=== PATIENT | male | born 1990 | race Caucasian/White ===

== ENCOUNTER 2019-02-09 00:38 | Emergency (ER) | payer MEDICAID, OTHER ==
[~2019-02-09] VITALS: Ht 170.2 cm; Wt 79.8 kg
--- NOTE | 2019-02-09 01:14 | NUR ---
SHELBY HARRISON CT
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
--- NOTE | 2019-02-09 01:45 | NUR ---
madeline on l posterior head lac[facility]. lozada. pt tolerated the procedure well. ice pack applied.
[2019-02-09 01:53] VITALS: BP 121/69
--- NOTE | 2019-02-09 01:53 | NUR ---
Patient discharged to home in stable condition. Written and verbal after care instructions given. Patient verbalizes understanding of instruction.
== END 2019-02-09 01:54 | disposition home or self-care (01) ==
LOC: ER 00:43
DX: S01.01XA Laceration without foreign body of scalp, initial encounter (principal); R51 Headache; Z88.0 Allergy status to penicillin; W18.09XA Striking against other object with subsequent fall, initial encounter; Y93.89 Activity, other specified; Y92.89 Other specified places as the place of occurrence of the external cause; Y99.8 Other external cause status
CPT/HCPCS: 12002; 70450; 99284; A6403

== ENCOUNTER 2019-02-25 01:11 | Emergency (ER) | payer MEDICAID ==
[~2019-02-25] VITALS: Ht 172.7 cm; Wt 74.8 kg
[2019-02-25 01:27] VITALS: BP 111/45
== END 2019-02-25 02:00 | disposition home or self-care (01) ==
LOC: ER 01:12
DX: S01.01XD Laceration without foreign body of scalp, subsequent encounter (principal); Z88.0 Allergy status to penicillin; X58.XXXD Exposure to other specified factors, subsequent encounter

== ENCOUNTER 2019-03-11 23:04 | Emergency (ER) | payer OTHER, MEDICAID ==
[~2019-03-11] VITALS: Ht 172.7 cm; Wt 74.8 kg
[2019-03-11 23:04] VITALS: BP 116/70
== END 2019-03-12 01:00 | disposition home or self-care (01) ==
LOC: ER 23:06
DX: S40.012A Contusion of left shoulder, initial encounter (principal); Z88.0 Allergy status to penicillin; V49.49XA Driver injured in collision with other motor vehicles in traffic accident, initial encounter; Y93.89 Activity, other specified; Y92.413 State road as the place of occurrence of the external cause; Y99.8 Other external cause status
CPT/HCPCS: 73030-TC

== ENCOUNTER 2022-07-13 10:28 | Emergency (ER) | payer MEDICAID, OTHER ==
[~2022-07-13] VITALS: Ht 170.2 cm; Wt 81.6 kg
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
[2022-07-13 10:39] VITALS: BP 120/62
[2022-07-13] MEDS ORDERED: CYCL5TAB PO (10:57)
[2022-07-13] MEDS ORDERED: IBUPROFEN 600 MG TABLET PO ONE (11:00)
[2022-07-13] MEDS ORDERED: CYCLOBENZAPRINE 10 MG TABLET PO ONE (11:00)
--- NOTE | 2022-07-13 11:59 | NUR ---
Patient discharged to home in stable condition. Written and verbal after care instructions given. Patient verbalizes understanding of instruction.
== END 2022-07-13 12:01 | disposition home or self-care (01) ==
LOC: ER 10:37
DX: M54.50 Low back pain, unspecified (principal); Z88.0 Allergy status to penicillin

== ENCOUNTER → 2023-12-03 | Emergency (ER) | payer OTHER ==
[~2023-12-03] VITALS: Ht 170.2 cm; Wt 90.7 kg
[~2023-12-03] MED LIST: CYCL5TAB PO; DICY10CA37 PO; DICYCLOMINE HCL INJ 20 MG/2 ML AMPUL IM ONE; KETOROLAC TROMETHAMINE 15 MG/ML VIAL ONE; ONDA4TAB11 PO; ONDANSETRON HCL/PF 4 MG/2 ML VIAL ONE
[2023-12-03 12:00] VITALS: BP 121/75; TEMP 97.9; O2SAT 100
[2023-12-03] MEDS: ONDANSETRON HCL/PF 4 MG/2 ML VIAL IVP ONE (12:01)
[2023-12-03] MEDS: KETOROLAC TROMETHAMINE 15 MG/ML VIAL IV ONE (12:03)
[2023-12-03] MEDS: IV NS 0.9% 1,000 ML BAG IV ONE (12:05)
[2023-12-03] MEDS: DICYCLOMINE HCL INJ 20 MG/2 ML AMPUL IM ONE (12:09)
[2023-12-03 12:29] LABS: BASOPHILS % (AUTO) 0.3 % (0.0-2.0); EOSINOPHILS % (AUTO) 0.2 % (0.0-6.0); HEMATOCRIT 49 % (39-51); HEMOGLOBIN 16.8 g/dL (13.5-17.5); LYMPHOCYTES # (AUTO) 0.2 K/uL (0.8-4.8); LYMPHOCYTES % (AUTO) 2.1 % (20.0-44.0); MEAN CORPUSCULAR HEMOGLOBIN 32 PG (26.0-33.0); MEAN CORPUSCULAR HGB CONC 34 g/dl (31.0-36.0); MEAN CORPUSCULAR VOLUME 93 fL (80-96); MONOCYTES # (AUTO) 0.4 K/uL (0.1-1.30); MONOCYTES % (AUTO) 4.2 % (2.0-12.0); NEUTROPHILS % (AUTO) 93.2 % (43.0-81.0); PLATELET COUNT (AUTO) 140 K/uL (150-450); RED BLOOD CELL COUNT(AUTO) 5.29 MIL/uL (4.5-6.0); RED CELL DISTRIBUTION WIDTH 13.4 % (11.5-15.0); WHITE BLOOD COUNT (AUTO) 8.5 K/uL (4.3-11.0)
[2023-12-03 12:37] LABS: ALBUMIN 4.4 g/dL (3.4-5.0); BILIRUBIN,DIRECT 0.2 mg/dL (0.0-0.2); BILIRUBIN,TOTAL 0.9 mg/dL (0.2-1.0); CALCIUM, SERUM 9.9 mg/dL (8.5-10.1); CREATININE 1.3 mg/dL (0.6-1.3); POTASSIUM 4.2 mmol/L (3.5-5.1)
== END | disposition home or self-care (01) ==
LOC: ER 11:43
DX: R11.2 Nausea with vomiting, unspecified (principal); R10.84 Generalized abdominal pain; R19.7 Diarrhea, unspecified; E86.0 Dehydration; Z88.0 Allergy status to penicillin
CPT/HCPCS: 99285; 74176; 96374; 96361; 96375; 85025; 80048; 83690; 80076; 36415; 96372; J2405; J7030; J0500; J1885; A4223

== ENCOUNTER 2024-05-01 11:38 | Emergency (ER) | payer OTHER ==
[~2024-05-01] VITALS: Ht 172.7 cm; Wt 80.7 kg
[~2024-05-01 11:38] MED LIST changes: -CYCL5TAB PO; -DICYCLOMINE HCL INJ 20 MG/2 ML AMPUL IM ONE; -KETOROLAC TROMETHAMINE 15 MG/ML VIAL ONE; -ONDANSETRON HCL/PF 4 MG/2 ML VIAL ONE
[2024-05-01 11:45] VITALS: TEMP 98.2
[2024-05-01] MEDS ORDERED: ONDANSETRON HCL/PF 4 MG/2 ML VIAL ONE (12:00)
[2024-05-01] MEDS ORDERED: FAMOTIDINE/PF INJ 20 MG/2 ML VIAL IV ONE (12:01)
[2024-05-01] MEDS: IV NS 0.9% 1,000 ML BAG IV ONE (12:10)
[2024-05-01] MEDS: ONDANSETRON HCL/PF 4 MG/2 ML VIAL IVP ONE (12:11)
[2024-05-01] MEDS: FAMOTIDINE/PF INJ 20 MG/2 ML VIAL IV ONE (12:12)
[2024-05-01 12:28] LABS: CALCIUM, SERUM 8.8 mg/dL (8.5-10.1); CREATININE 1.5 mg/dL (0.6-1.3); POTASSIUM 4.1 mmol/L (3.5-5.1)
[2024-05-01 12:34] LABS: BILIRUBIN,DIRECT 0.2 mg/dL (0.0-0.2); BILIRUBIN,TOTAL 0.5 mg/dL (0.2-1.0); TOTAL PROTEIN, SERUM 6.9 g/dL (6.4-8.2)
[2024-05-01 12:47] LABS: BASOPHILS % (AUTO) 0.1 % (0.0-2.0); EOSINOPHILS # (AUTO) 0.1 K/uL (0.0-0.7); EOSINOPHILS % (AUTO) 0.9 % (0.0-6.0); HEMATOCRIT 52 % (39-51); HEMOGLOBIN 17.4 g/dL (13.5-17.5); LYMPHOCYTES # (AUTO) 1.2 K/uL (0.8-4.8); LYMPHOCYTES % (AUTO) 12.4 % (20.0-44.0); MEAN CORPUSCULAR HEMOGLOBIN 32 PG (26.0-33.0); MEAN CORPUSCULAR HGB CONC 34 g/dl (31.0-36.0); MEAN CORPUSCULAR VOLUME 96 fL (80-96); MONOCYTES # (AUTO) 0.7 K/uL (0.1-1.30); MONOCYTES % (AUTO) 7.8 % (2.0-12.0); NEUTROPHILS # (AUTO) 7.5 K/uL (1.8-8.9); NEUTROPHILS % (AUTO) 78.8 % (43.0-81.0); PLATELET COUNT (AUTO) 167 K/uL (150-450); WHITE BLOOD COUNT (AUTO) 9.6 K/uL (4.3-11.0)
[2024-05-01] MEDS ORDERED: ONDA4TAB5 PO (13:16)
[2024-05-01 13:38] VITALS: BP 116/70; O2SAT 99
== END 2024-05-01 13:35 | disposition home or self-care (01) ==
LOC: ER 11:46
DX: R11.2 Nausea with vomiting, unspecified (principal); R19.7 Diarrhea, unspecified; Z88.0 Allergy status to penicillin
CPT/HCPCS: 99284; 96374; 96361; 96375; 85025; 80048; 83690; 80076; 36415; J3490; J2405; J7030